=== PATIENT | male | born 1960 | race Caucasian/White ===

== ENCOUNTER 2019-01-11 15:47 | Inpatient (IN) | payer OTHER ==
[~2019-01-11] VITALS: Ht 185.4 cm; Wt 129.7 kg
[~2019-01-11 15:47] MED LIST: ACTOS 45 MG45 MG PO; CRESTOR PO; HYDROCHLOROTH12.5 MG PO
[2019-01-11 15:53] VITALS: BP 172/87
[2019-01-11] MEDS ORDERED: SINEMET 10-1001 EAC1 PO (15:58)
[2019-01-11] MEDS ORDERED: GLUCOPHAGE1000 MG PO (15:58)
[2019-01-11] MEDS ORDERED: ALTACE10 MG PO (15:58)
[2019-01-11] MEDS ORDERED: ZYRTEC10 M5 PO (15:59)
[2019-01-11 16:20] LABS: ABSOLUTE BASOPHILS 0.1 thou/uL (0.0-0.2); ABSOLUTE EOSINOPHILS 0.3 thou/uL (0.0-0.7); ABSOLUTE LYMPHOCYTES 2.7 thou/uL (0.8-5.3); ABSOLUTE MONOCYTES 0.5 thou/uL (0.0-1.2); BASOPHILS 1.2 %; EOSINOPHILS 3.6 %; HEMATOCRIT 41.2 % (42.0-52.0); HEMOGLOBIN 14.3 gm/dL (14.0-18.0); LYMPHOCYTES 35.9 %; MCH 30.2 pg (26.0-34.0); MCHC 34.6 g/dL (28.0-37.0); MCV 87.4 fL (80.0-100.0); MONOCYTES 6.3 %; MPV 8.9 fl. (7.2-11.1); NUCLEATED RBCS 0 /100WBC; PLATELET COUNT* 217 thou/uL (150-400); RBC 4.72 mil/uL (4.50-6.00); RDW-CV 13.2 % (10.5-14.5); WBC 7.6 thou/uL (4.0-11.0)
[2019-01-11 16:28] LABS: PROTIME 10.2 Seconds (9.20-11.50)
[2019-01-11] MEDS ORDERED: AMARYL4 MG PO (16:32)
[2019-01-11 16:36] LABS: ALBUMIN 3.3 g/dL (3.4-5.0); CREATININE 1.1 mg/dL (0.6-1.3); TOTAL BILIRUBIN 0.8 mg/dL (<0.1-1.0); TOTAL PROTEIN 7.2 g/dL (6.4-8.2)
[2019-01-11 19:50] VITALS: BP 164/102
[2019-01-11 20:35] VITALS: BP 150/87
[2019-01-11] MEDS ORDERED: CINNAMON500 MG PO (21:10)
[2019-01-12] VITALS (17 sets, daily range): BP systolic 122–168; BP diastolic 61–100
[2019-01-12 05:09] LABS: HEMATOCRIT 40.6 % (42.0-52.0); HEMOGLOBIN 13.7 gm/dL (14.0-18.0); MCH 29.4 pg (26.0-34.0); MCHC 33.9 g/dL (28.0-37.0); MCV 86.7 fL (80.0-100.0); MPV 8.9 fl. (7.2-11.1); RBC 4.68 mil/uL (4.50-6.00); WBC 6.5 thou/uL (4.0-11.0)
[2019-01-12 05:33] LABS: ALBUMIN 3.2 g/dL (3.4-5.0); CALCIUM 8.7 mg/dL (8.5-10.1); MAGNESIUM 1.6 mg/dL (1.8-2.4); POTASSIUM 3.9 mmol/L (3.5-5.1); TOTAL PROTEIN 6.9 g/dL (6.4-8.2); TROPONIN-I LEVEL 0.33 ng/mL (<0.06)
--- NOTE | 2019-01-12 15:14 | 2DMMODE ---
[place] [address] 2 D/M-MODE ECHOCARDIOGRAM Name: DONNA COPELAND Room: [address] IN [facility]#: [id number] Admission: 01/11/19 Attend Phys: Colleen Somers, Discharge: Date of : 58 Date of Service: 01/12/19 1514 Report #: [id number] THIS REPORT FOR: //name// APPROVED REPORT Study performed: 01/12/2019 09:50:34 EXAM: Comprehensive 2D, Doppler, and color-flow Echocardiogram Patient Location: In-Patient Room #: [facility] Status: routine BSA: 2.52 HR: 78 bpm BP: 143/77 mmHg Rhythm: NSR Other Information Study Quality: Good Indications Non STEMI 2D Dimensions IVSd: 15.03 (7-11mm) LVOT Diam: 2.00 (18-24mm) LVDd: 48.74 mm PWd: 13.56 (7-11mm) Ascending Ao: 33.82 (22-36mm) LVDs: 28.36 (25-40mm) Aortic Root: 34.00 mm Volumes Left Atrial Volume (Systole) LA ESV Index: 25.80 mL/m2 Aortic Valve AoV Peak Jaems.: 1.10 m/s AO Peak Gr.: 4.84 mmHg LVOT Max P.78 mmHg AO Mean Gr.: 2.93 mmHg LVOT Mean P.07 mmHg LVOT Max V: 0.97 m/s AO V2 VTI: 22.39 cm LVOT Mean V: 0.68 m/s LVOT V1 VTI: 21.15 cm Mitral Valve E/A Ratio: 1.43 MV Decel. Time: 155.40 ms MV E Max James.: 0.92 m/[place] [address] 2 D/M-MODE ECHOCARDIOGRAM Name: DINORAHDONNA Ramírez Room: [address]#: [id number] Admission: 01/11/19 Attend Phys: Colleen Somers, Discharge: Date of : 58 Date of Service: 01/12/19 1514 Report #: [id number] MV PHT: 45.06 ms MVA (PHT): 4.88 cm2 TDI E/Lateral E': 7.08 E/Medial E': 9.20 Medial E' James.: 0.10 m/s Lateral E' James.: 0.13 m/s Pulmonary Valve PV Peak James.: 0.79 m/s PV Peak Gr.: 2.51 mmHg Left Ventricle The left ventricle is normal size. There is normal LV segmental wall motion. Mild to moderate concentric left ventricular hypertrophy. Left ventricular systolic function is normal. LVEF is 60-65%. Transmitral Doppler flow pattern suggests impaired LV relaxation. Right Ventricle The right ventricle is normal size. The right ventricular systolic function is normal. Atria Left atrium is mildly dilated. The right atrium size is normal. Aortic Valve The aortic valve is normal in structure. No aortic regurgitation is present. There is no aortic valvular stenosis. Mitral Valve The mitral valve is normal in structure. Trace mitral regurgitation. No evidence of mitral valve stenosis. Tricuspid Valve The tricuspid valve is normal in structure. Unable to assess PA pressure. Trace tricuspid regurgitation. Pulmonic Valve The pulmonary valve is normal in structure. There is no pulmonic valvular regurgitation. Great Vessels The aortic root is normal in size. IVC is normal in size and collapses >50% [place] [address] 2 D/M-MODE ECHOCARDIOGRAM Name: DONNA COPELAND Room: [address]#: [id number] Admission: 01/11/19 Attend Phys: Colleen Somers, Discharge: Date of : 58 Date of Service: 01/12/19 1514 Report #: [id number] Pericardium There is no pericardial effusion. <Conclusion> The left ventricle is normal size. Mild to moderate concentric left ventricular hypertrophy. Left ventricular systolic function is normal. LVEF is 60-65%. Transmitral Doppler flow pattern suggests impaired LV relaxation. Left atrium is mildly dilated. Trace mitral regurgitation. Trace tricuspid regurgitation. IVC is normal in size and collapses >50% with inspiration. <ELECTRONICALLY SIGNED> By: See Conklin MD, FACC 01/12/19 1514 13 13 See Conklin MD, FACC /INF
--- NOTE | 2019-01-12 18:19 | EKG ---
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 : 1960 Requested By: Donna Trimble Order Number: [id number] MD: See Conklin Measurements Intervals [place] Rate: 87 P: 46 FL: 154 QRS: 13 QRSD: 101 T: -16 QT: 356 QTc: 429 Interpretive Statements Sinus rhythm Possible left atrial enlargement Incomplete right bundle-branch block Borderline T abnormalities, inferior leads Baseline wander in lead(s) V1,V3 Compared to ECG 08/24/2011 09:55:20 T-wave abnormality now present Sinus tachycardia no longer present Electronically Signed On 01-12-2019 18:19:26 CDT by See Conklin [email or web address] <ELECTRONICALLY SIGNED> By: See Conklin MD, FACC 01/12/19 1819 1553 1553 See Conklin MD, FACC /EPI
--- NOTE | 2019-01-12 18:20 | EKG ---
[place] [address] ELECTROCARDIOGRAM REPORT Name: DONNA COPELAND Room: [address] ADM IN .R.#: [id number] Admission: 01/11/19 Attend Phys: Colleen Somers MD Discharge: Date of : 58 Report #: [id number] THIS REPORT FOR: //name// [facility] ED Test Date: 2019-01-11 Test Time: 18:51:23 Pat Name: DONNA COPELAND Department: Room: 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: : 1960 Requested By: Donna Trimble Order Number: [id number] MD: See Conklin Measurements Intervals [place] Rate: 73 P: 32 [place]: 156 QRS: -7 QRSD: 103 T: -12 QT: 396 QTc: 437 Interpretive Statements Sinus rhythm Incomplete right bundle-branch block Left ventricular hypertrophy, by voltage Borderline T abnormalities, inferior leads Baseline wander in lead(s) V3 Compared to ECG 08/24/2011 09:55:20 Left ventricular hypertrophy now present T-wave abnormality now present Sinus tachycardia no longer present Electronically Signed On 01-12-2019 18:20:44 CDT by See Conklin [email or web address] <ELECTRONICALLY SIGNED> By: See Conklin MD, FACC 01/12/191819 50 50 See Conklin MD, [facility] /EPI
--- NOTE | 2019-01-12 18:27 | EKG ---
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 : 1960 Requested By: See Conklin Order Number: [id number] Breezy MD: See Conklin Measurements Intervals [place] Rate: 77 P: 44 [place]: 160 QRS: 2 QRSD: 104 T: -21 QT: 414 QTc: 469 Interpretive Statements Sinus rhythm Incomplete right bundle-branch block Borderline T abnormalities, inferior leads Compared to ECG 08/24/2011 09:55:20 RSR' in V1 or V2 now present T-wave abnormality now present Sinus tachycardia no longer present Electronically Signed On 01-12-2019 18:27:23 CDT by See Conklin [email or web address] <ELECTRONICALLY SIGNED> By: See Conklin MD, FACC 01/12/19 1827 1649 1649 See Conklin MD, FAC /EPI
[2019-01-12 23:06] LABS: GLYCOHEMOGLOBIN (HGB A1C) 9.3 % (4.8-5.6)
[2019-01-13] VITALS: BP 132/67
[2019-01-13 04:00] VITALS: BP 126/74
[2019-01-13 05:12] LABS: ALBUMIN 3.2 g/dL (3.4-5.0); ALKALINE PHOSPHATASE 72 U/L (46-116); ANION GAP 9 mmol/L (7-16); BUN 11 mg/dL (7-18); CALCIUM 8.9 mg/dL (8.5-10.1); CHLORIDE 105 mmol/L (98-107); CHOLESTEROL 178 mg/dL (<200); CO2 26 mmol/L (21-32); CREATININE 0.9 mg/dL (0.6-1.3); GLUCOSE 175 mg/dL (70-99); HDL CHOLESTEROL 34 mg/dL (>40); LDL CHOLESTEROL 97 mg/dL (<100); MAGNESIUM 1.8 mg/dL (1.8-2.4); POTASSIUM 3.7 mmol/L (3.5-5.1); SGOT 22 U/L (15-37); SGPT 44 U/L (30-65); SODIUM 140 mmol/L (136-145); TC:HDL 5.2 Ratio (Not establshd); TOTAL BILIRUBIN 1.6 mg/dL (<0.1-1.0); TOTAL PROTEIN 6.9 g/dL (6.4-8.2); TRIGLYCERIDE 239 mg/dL (<150); VLDL 48 mg/dL (<40)
[2019-01-13 05:13] LABS: SERUM ASSESSMENT Clear
[2019-01-13 08:00] VITALS: BP 147/84
[2019-01-13 08:48] VITALS: BP 147/84
--- NOTE | 2019-01-13 11:11 | CARD ---
[address] [address] CARDIAC CATH REPORT Name: DONNA COPELAND Room: [address] IN [facility]#: [id number] Admission: 01/11/19 Attend Phys: Colleen Somers MD Discharge: Date of : 58 Report #: [id number] THIS REPORT FOR: //name// APPROVED REPORT Study performed: 01/12/2019 15:19:05 Patient Details The patient is a 58 year-old male Event Personnel See Conklin Manual Machinist, Tung Parnell [employer] Monitor, Kirti Huynh RN Forensic Examiner, Bakari Grey [employer] Scrub, Sophie Javier RN Forensic Examiner, Dr. Haynes Procedures Performed Left Heart Cath w/or w/o Coronaries [facility] Place w/wo Plasty Single CIRC Hemostasis w/ Angioseal , Left Heart Catheterization Indication Non-STEMI Risk Factors Obesity, Hypercholesterolemia Admission/Lab Medications/Medications given during procedure Aspirin, Platelet Aff. Inhib., Angiomax bolus and infusion Procedure Narrative The patient was brought electively to the Cardiac Catheterization Laboratory and was prepped and draped in a sterile manner. The right femoral was infiltrated with 2% Lidocaine subcutaneous anesthesia. A 6fr Ultimum Sheath sheath was inserted into the right femoral artery. Coronary angiography was performed using coronary diagnostic catheters. The right coronary system was accessed and visualized with a 6Fr rca catheter. The left coronary system was accessed and visualized with a 6Fr jl4 catheter. The left ventricle was accessed and visualized with a Diagnostic catheter. Left ventricular/Aortic Valve gradient assessed via catheter pullback. Left ventriculogram was performed in DIEHL projection. Pre-demployment femoral angiogram was performed . Closure device was deployed with a Fr Angioseal STS 6Fr. The patient tolerated the procedure well and there were no complications associated with the procedure. [place] [address] CARDIAC CATH REPORT Name: DONNA COPELAND Room: [address] IN [facility].#: [id number] Admission: 01/11/19 Attend Phys: Colleen Somers MD Discharge: Date of : 58 Report #: [id number] Intraoperative Conscious Sedation Fentanyl 50 mcg Dose: 137 mGy Contrast Type and Amount: Visipaque 230 ml Coronary Angiography The patient's coronary anatomy is left dominant. Diagnostic Cath Left Main 0% narrowing LAD 20 percent mid LAD narrowing Circumflex Dominant vessel with 90% mid vessel stenosis with local thrombus at the site Right Coronary Nondominant vessel with 0% narrowing Left Ventriculography The left ventricle is normal in size with normal contractility. The left ventricular ejection fraction is estimated to be 60%. Left ventricular wall motion abnormalities are not present. There is no mitral insufficiency. Hemodynamics The aortic pressure is 129/69 mmHg with a mean of 68 mmHg. The left ventricular pressure is 130/4 mmHg with a mean of mmHg. The left ventricular end diastolic pressure is 21 mmHg. There was no gradient across the aortic valve upon pullback. PCI Technique Lesion Anticoagulation was achieved with Angiomax. Patient was preloaded with Angiomax IV 20 mg per kg. Percutaneous coronary intervention was performed on the mid circumflex artery segment. The lesion stenosis prior to intervention was 90% with ERWIN 3 flow. A 6FR XB 3.5 100CM Guide Catheter was used to engage the ostium. A IG: ProwaterFlex 180CM Interventional Guidewire was used to cross the lesion. BALLOON DILATION A Balloon catheter Trek RX 2.5 X 12 was inserted and inflated up to 14.00atm for 12seconds. Additional Inflation: 16.00atm for 8seconds. STENT DEPLOYMENT A stent Xience Heena 2.5X15mm was inserted and inflated up to 16.00atm for 13seconds. Additional Inflation: 10.00atm for 12seconds. [place] [address] CARDIAC CATH REPORT Name: DONNA COPELAND Room: [address]#: [id number] Admission: 01/11/19 Attend Phys: Colleen Somers MD Discharge: Date of : 58 Report #: [id number] Final angiography reveals 0 % stenosis with ERWIN 3 flow. Conclusion #1 significant coronary arteries characterized by following: A 90% stenosis of the midportion of the dominant circumflex with local thrombus at the site B 20% mid LAD narrowing #2 normal left ventricular systolic function, estimated ejection fraction being 60% #3 modest elevation of left ventricular end-diastolic pressure at rest #4 successful percutaneous coronary intervention with deployment of drug-eluting stent at the site of 90% mid circumflex stenosis with 0% residual narrowing following stent deployment and ERWIN-3 flow to the distal vessel with no residual thrombus. Recommendations Cardiac Risk Reduction Program Aggressive Medical Therapy Medications Administered Aspirin (any) Ticagrelor Diagnostic Cath Approved by: See Conklin MD Date/Time: 01/13/2019 11:09:42 <ELECTRONICALLY SIGNED> By: Deep Haynes MD, FACC 01/13/19 1110 09 111Deep Haynes MD, FACC /INF
[2019-01-13 11:41] VITALS: BP 147/84
[2019-01-13 11:58] VITALS: BP 147/92
--- NOTE | 2019-01-13 12:19 | EKG ---
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 : 1960 Requested By: See Conklin Order Number: [id number] Reading MD: Deep Haynes Measurements Intervals [place] Rate: 74 P: 67 [place]: 157 QRS: 11 QRSD: 178 T: -44 QT: 409 QTc: 454 Interpretive Statements Sinus rhythm Probable left ventricular hypertrophy Borderline abnrm T, anterolateral leads Compared to ECG 01/12/2019 16:49:21 T-wave abnormality no longer present Electronically Signed On 01-13-2019 12:18:55 CDT by Deep Haynes [email or web address] <ELECTRONICALLY SIGNED> By: Deep Haynes MD, FACC 01/13/19 1218 0456 0456 Deep Haynes MD, [facility] /EPI
[2019-01-13] MEDS ORDERED: ATORVASTATIN CA20 MG PO (13:29)
[2019-01-13] MEDS ORDERED: ASPIR 8181 MG PO (13:29)
[2019-01-13] MEDS ORDERED: BRILINTA90 MG PO (13:29)
[2019-01-13] MEDS ORDERED: NITROGLYCERIN0.4 MG SUBLING (13:47)
--- NOTE | 2019-01-13 17:23 | CON ---
[address] [address] CONSULTATION Name: DONNA COPELAND Room: [address]#: [id number] Admission: 01/11/19 Attend Phys: Colleen Somers MD Discharge: 01/13/19 Date of : 58 Report #: [id number] THIS REPORT FOR: //name// CC: Colleen Washington DATE OF SERVICE: 01/12/2019 CARDIOLOGY CONSULT INDICATION: Non-ST elevation myocardial infarction. HISTORY OF PRESENT ILLNESS: The patient is a very pleasant 58-year-old gentleman who was admitted to the hospital with a left sternal chest pressure and pain and shortness of breath. The patient's troponin is currently 0.33. EKG showed sinus rhythm without ST elevation. Cardiac risk factors include family history of coronary artery disease and type 2 diabetes. He has a history possibly of some dyslipidemia in the past. PAST MEDICAL HISTORY: 1. Type 2 diabetes mellitus. 2. 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 3. C7 repair. FAMILY HISTORY: The patient's brother had coronary artery bypass grafting in his 60s. SOCIAL HISTORY: The patient is a lifelong nonsmoker. He drinks alcohol occasionally. CURRENT MEDICATIONS: Metformin 1000 mg p.o. b.i.d., ramipril 10 mg p.o. daily, Zyrtec 10 mg daily, glimepiride 4 mg daily, cinnamon bark 1000 mg daily. ALLERGIES: None documented. PHYSICAL EXAMINATION: VITAL SIGNS: Stable. Blood pressure 143/77, pulse 73 and regular. GENERAL: This is a pleasant gentleman in no distress. Mood and affect appropriate. HEENT: Extraocular muscles intact. Mucous membranes moist. NECK: Shows no jugular venous distention. No carotid bruits. CHEST: Reveals clear lung gonzalez without wheezes, rales or rhonchi. CARDIOVASCULAR: Reveals regular rhythm with normal S1 and S2[place] [address] CONSULTATION Name: DONNA COPELAND Room: [address]#: [id number] Admission: 01/11/19 Attend Phys: Colleen Somers MD Discharge: 01/13/19 Date of : 58 Report #: [id number] gallop or murmur. ABDOMEN: Reveals normal bowel sounds. The abdomen is soft, nontender. EXTREMITIES: Shows no edema. Peripheral pulses 2+ and easily palpable. SKIN: Warm and dry. IMPRESSION AND RECOMMENDATIONS: 1. Non-ST elevation myocardial infarction. We will proceed with cardiac catheterization. Further intervention pending results of that initial invasive study. 2. Diabetes. Holding metformin pending cardiac catheterization. Continue glimepiride at this time. 3. Possible dyslipidemia. We will need to check fasting lipid profile. <ELECTRONICALLY SIGNED> By: See Conklin MD, FACC 01/13/19 1723 0933 0003Micmalika Conklin MD, [facility] /nt
== END 2019-01-13 14:15 | disposition home or self-care (01) | DRG 247 ==
LOC: M.ERS 15:47 → M.TBA-ER 17:45 → M.2W 17:45
PROVIDERS: Internal Medicine Cardiovascular Disease; Personal Emergency Response Attendant; ADMIT Internal Medicine
DX: I21.4 Non-ST elevation (NSTEMI) myocardial infarction (principal); E11.9 Type 2 diabetes mellitus without complications; I10 Essential (primary) hypertension; I25.10 Atherosclerotic heart disease of native coronary artery without angina pectoris; Z85.828 Personal history of other malignant neoplasm of skin; Z79.84 Long term (current) use of oral hypoglycemic drugs; Z82.49 Family history of ischemic heart disease and other diseases of the circulatory system